=== PATIENT | male | born 1960 | race Caucasian/White ===

== ENCOUNTER 2018-07-26 20:33 | Emergency (ER) | payer MEDICARE, MEDICAID ==
[~2018-07-26 20:33] MED LIST: EPINEPHrine 0.1 MG/ML SYG; NA BICARBONATE 8.4% 50 ML SYG
== END 2018-07-27 02:01 | disposition expired ==
LOC: E/R 07-27 02:01
DX: I46.9 Cardiac arrest, cause unspecified (principal)
CPT/HCPCS: 31500; 92950; 93005; 99285-25